=== PATIENT | female | born 1985 | race Caucasian/White ===

== ENCOUNTER 2021-04-17 15:58 | Outpatient (CLI) | payer BC, MEDICAID ==
[~2021-04-17 15:58] MED LIST: ESCI5TAB PO; FEXO30TA7 PO; METF-950 PO; NOVA RING VG; TOP25T PO
== END 2021-04-17 23:59 | disposition home or self-care (01) ==
LOC: VAS 15:58
PROVIDERS: ATTEND Family Medicine
DX: M79.604 Pain in right leg (principal)
CPT/HCPCS: 93971

== ENCOUNTER 2023-06-20 10:26 | Outpatient (CLI) | payer BC, MEDICAID ==
[~2023-06-20 10:26] MED LIST changes: +METF-1203 PO; -METF-950 PO
== END 2023-06-20 23:59 | disposition home or self-care (01) ==
LOC: VAS 10:26
PROVIDERS: ATTEND Family Medicine
DX: R20.0 Anesthesia of skin (principal)
CPT/HCPCS: 93922